=== PATIENT | male | born 1970 | race Caucasian/White ===

== ENCOUNTER 2022-02-26 14:28 | Emergency (ER) | payer OTHER, SELFPAY ==
[2022-02-26 14:33] VITALS: BP 158/101; PULSE 101; RESP 14; TEMP 36.5; O2SAT 97; BMI 27.5
--- NOTE | 2022-02-26 14:37 | RAD_ITS ---
STUDY: X-RAY - RIGHT KNEE REASON FOR EXAM: Male, 51 years old. pain, minor injury; ant swelling/redness TECHNIQUE: 4 view(s) of the knee. COMPARISON: None. FINDINGS: Normal visualized distal femur. Normal visualized proximal tibia and fibula. Normal proximal tibiofibular articulation. Normal medial femorotibial compartment. Normal lateral femorotibial compartment. Normal patellofemoral articulation. The soft tissue structures are unremarkable. RAD/Knee 4 or More Views IMPRESSION: Normal x-ray examination of the knee. Electronically Signed: Marko Pyle MD at 15:01 EST ,
[2022-02-26] MEDS: Ketorolac 30 MG/ML Syringe IM (14:52)
[2022-02-26 15:18] LABS: Absolute Lymphocyte Count 1.24 X10^3/uL (0.83-4.51); Absolute Neutrophil Count 6.4 X10^3/uL (2.0-7.7); Basophil# 0.03 X10^3/uL; Basophil% 0.3 % (0-1); Eosinophil# 0.12 X10^3/uL; Eosinophils% 1.3 % (0-5); Hematocrit 45.6 % (40-54); Hemoglobin 15.1 g/dL (13.0-16.5); Lymphocyte # 1.24 X10^3/ul (0.83-4.51); Lymphocyte % 13.9 % (19-41); Mean Corp Hgb Conc 33.1 g/dL (32-36); Mean Corpuscular Hgb 28.9 pg (27.0-32.0); Mean Corpuscular Volume 87.2 fL (80-94); Mean Platelet Vol. 8.7 fl (6.2-12.0); Monocyte# 1.12 X10^3/uL; Monocyte% 12.5 % (0-10); NRBC Flagged by Analyzer 0 % (0-5); Neutrophil % 71.7 % (47-70); Platelet Count 238 K/mm3 (150-450); RBC Distribution Width CV 13.2 % (11.6-14.6); RBC Distribution Width SD 41.8 fl (35.1-43.9); Red Blood Count 5.23 M/mm3 (4.6-6.2); White Blood Count 8.9 K/mm3 (4.4-11.0)
[2022-02-26 15:31] LABS: Anion Gap 5 (5-15); BUN 14 mg/dL (7-18); BUN/Creat Ratio 14.7 RATIO (10-20); Calcium,Total 9.4 mg/dL (8.5-10.1); Chloride 104 mmol/L (98-107); Creatinine, Serum 0.96 mg/dL (0.70-1.30); EST Glomerular Filtration Rate 88 mL/min (>60); Erythrocyte Sedimentation Rate 34 mm/hr (0-20); Est Glom Filt Rate - Afr Amer 107 mL/min (>60); Estimated Creatinine Clearance 99.92 ml/min; Glucose 117 mg/dL (74-106); Potassium 4.1 mmol/L (3.5-5.1); Sodium Level 139 mmol/L (136-145); Uric Acid 2.6 mg/dL (3.5-7.2)
--- NOTE | 2022-02-26 15:43 | ED.VIS.LOWEX ---
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 However since then, the pain is gradually worsened, he has had significant erythema throughout the knee and radiating distally, and swelling around this area. 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 He has never had this happen before. He denies any fevers or chills but states he has just been feeling poorly today. PFSH PFSH Medical History no medical history no medical history Home Medications cephalexin 500 mg capsule 500 mg PO Q6 #40 CAPSULES 02/26/22 [Rx Last Taken Unknown] sulfamethoxazole 800 mg-trimethoprim 160 mg tablet 1 tab PO BID #20 TABLETS 02/26/22 [Rx Last Taken Unknown] Allergy/AdvReac Type Severity Reaction Status Date / Time No Known Allergies Allergy Verified 02/26/22 14:33 Social History (Updated 02/26/22 @ 15:[address] Justin Laird MD) Smoking Status: Never smoker substance use type: does not use ROS ROS ED Constitutional Constitutional ED: Reports malaise; Denies chills or fever(s) Musculoskeletal Musculoskeletal: Reports extremity pain; Denies neck pain Integumentary Denies Abrasions, rash or wounds Neurologic Neurologic: Denies paresthesias or weakness EXAM Physical Exam Const Vital Signs: 02/26/22 14:33 Temperature 97.7 F L Temperature Source Temporal Pulse Rate 101 H Respiratory Rate 14 Blood Pressure 158/101 H Blood Pressure Mean 120 Pulse Ox 97 Oxygen Delivery Method Room Air Positive well nourished and well developed General Appearance ED: well developed and NAD Neck full ROM and supple Back/Spine normal ROM and normal to inspection Extremity Extremity Narrative: Right knee erythema, swelling, tenderness see below. All muscle compartments of the thigh and lower leg are soft nondistended and nontender except for the areas of erythema/possible cellulitis. Neuro oriented x3, no focal motor deficits and no sensory deficits noted Sensorium / Orientation: alert Psych mental status grossly normal and thought process normal Skin Skin Narrative: Darkened erythema superior pole of patella where patient had the minor injury, with significant blanching erythema consistent with cellulitis all of which is very warm and tender surrounding the anterior right knee and progression distally into the garces. Swollen not necessarily fluctuant. Difficult to tell if there is any effusion because of the amount of anterior swelling and erythema and tenderness. No bony tenderness. Limited flexion due to pain but able to range the knee without significant difficulty or limitation. No lymphangitis. MDM MDM MDM Narrative Medical decision making narrative: Concern here is for a septic prepatellar bursitis given the clinical appearance of it. I started with a 4 view x-ray of the right knee which I am interpretation shows nothing acute, radiology was in agreement, and labs. His white blood count is within normal range, his ESR and CRP are elevated which is nonspecific, but clinically I am at a low suspicion of joint involvement. His uric acid is low and not elevated. He has never had gout before. Cellulitis is going assisted down his lower leg, but not to the ankle or foot. I do not think the joint is affected here. After consenting the patient, we did attempt to aspirate, but there was a scant amount of fluid able to be obtained, not enough for me to even send for testing or evaluate clinically. This was aspirated from the prepatellar bursa not the joint. He does have symptom distal edema, I think this is all related to the bursitis and not DVT since everything is anterior and started at the patella. Discussed all this with Dr. Arenas on for orthopedics including the lab results and my clinical concern. He advised parenteral IV antibiotics here, discharging the patient on cephalexin and Bactrim, an Lobo wrap, offering crutches, and following up in the office within the next 1 or 2 days for reevaluation. Lab Data Attestation: I reviewed the patient's lab results. Labs: Laboratory Results - last 24 hr 02/26/22 02/26/22 15:10 15:10 WBC 8.9 RBC 5.23 Hgb 15.1 Hct 45.6 MCV 87.2 MCH 28.9 MCHC 33.1 RDW Std Deviation 41.8 RDW Coeff of Ammy 13.2 Plt Count 238 MPV 8.7 Immature Gran % (Auto) 0.300 Neut % (Auto) 71.7 H Lymph % (Auto) 13.9 L Polk % (Auto) 12.5 H Eos % (Auto) 1.3 Baso % (Auto) 0.3 Absolute Neuts (auto) 6.4 Absolute Lymphs (auto) 1.24 Nucleated RBC % 0 ESR 34 H Sodium 139 Potassium 4.1 Chloride 104 Carbon Dioxide 30.0 Anion Gap 5 BUN 14 Creatinine 0.96 Estim Creat Clear Calc 99.92 Est GFR (MDRD) Af Amer 107 Est GFR (MDRD) Non-Af 88 BUN/Creatinine Ratio 14.7 Glucose 117 H Uric Acid 2.6 L Calcium 9.4 C-React Prot Ext Range 82.70 H Radiography Diagnostic Testing: Clinical Impression(s) from Imaging Studies Knee X-Ray 02/26/22 14:37 IMPRESSION: Normal x-ray examination of the knee. Electronically Signed: Marko Pyle MD at 15:01 EST , Procedures Other Procedures Procedure(s): Aspiration of right prepatellar bursa: After sterile prep and informed consent from the patient, prepped with isopropanol, injected 0.5 cc plain 0.5% bupivacaine, and through a different injection site, placed a 22-gauge sterile needle almost down to the patella, was able to aspirate only a scant amount of clear fluid not enough to test, bandage placed, tolerated well with no complications. This was not placed in the knee joint space. Discharge Plan Triage Chief Complaint: Lower Extremity Injury ED Provider: Justin Laird Dx/Rx/DC Orders Clinical Impression: Septic prepatellar bursitis of right knee Instructions: ED Bursitis Prescriptions: New sulfamethoxazole-trimethoprim [sulfamethoxazole-trimethoprim] 1 TABLET tablet 1 tab PO BID Qty: 20 0RF cephalexin [cephalexin] 500 MG capsule 500 mg PO Q6 Qty: 40 0RF Primary Care Provider: Ana Whipple NP Referrals: Jerry Arenas DO [Med Staff - Active Staff] - 2 Days (1-2 days, call for appt) Ana Whipple [employer], [employer] [Primary Care Provider] - Disposition Disposition: Home, Self Care
[2022-02-26] MEDS: Cefazolin 1 GM/50 ML BAG IV (16:32)
== END 2022-02-26 19:24 | disposition home or self-care (01) ==
PROVIDERS: Emergency Provider Emergency Medicine; PCP Nurse Practitioner Family; Visit Provider Emergency Medicine
DX: M70.41 Prepatellar bursitis, right knee (principal)
CPT/HCPCS: 73564; 80048; 84550; 85025; 85652; 86140; 96365; 96366; 96367; 96372; 99283; J7040; J7050; A4216